=== PATIENT | male | born 1940 | race Caucasian/White ===

== ENCOUNTER 2018-07-24 22:11 | Observation (INO) | payer MEDICARE, OTHER ==
--- NOTE | 2018-07-24 22:25 | Emergency Department Record ---
History of Present Illness - General Chief complaint: Vomiting Stated complaint: FEVER,VOMITING HIGH BP Time Seen by Provider: 07/24/18 22:13 Source: Patient, Family Mode of Arrival: Ambulatory Limitations: No limitations - History of Present Illness Initial comments: 78 yo male presents with concerns about dehydration. He has not felt well for a week. The symptoms started with nausea, vomiting, and diarrhea the first day. The diarrhea and vomiting have subsided. His appetite has remained decreased. He has not seen blood in the stool or vomit. He does not have a PCP and denies any prescriptions. He was told he had HTN in the past but he does not take medicine. He has been taking his blood pressure at home and it has been elevated. He has had some mild epigastric pain since he first vomited a week ago. He has had some palpitations throughout the week that he attributes to dehydration. He feels somewhat dizzy with the palpitation. 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 MD complaint: Abdominal pain, Diarrhea, Nausea, Vomiting -: Week(s) Description of Vomiting: Watery Description of Diarrhea: Water Location: Diffuse Severity: Mild Consistency: Intermittent Improves with: None Worsens with: Eating Context: Other Associated Symptoms: Other - Related Data Home Medications Medication Instructions Recorded Confirmed Last Taken No Home Med [NO HOME MEDS] 07/24/18 07/24/18 Unknown Allergies Allergy/AdvReac Type Severity Reaction Status Date / Time No Known Drug Allergies Allergy Verified 07/24/18 22:21 Review of Systems Constitutional: Reports: Malaise, Weakness. Denies: Chills, Fever Eyes: Denies: Eye discharge, Eye pain, Photophobia, Vision change ENT: Denies: Congestion, Throat pain Respiratory: Denies: Cough, Dyspnea, Hemoptysis Cardiovascular: Reports: Palpitations. Denies: Chest pain, Syncope Endocrine: Reports: Fatigue. Denies: Heat or cold intolerance, Polydipsia, Polyuria Gastrointestinal: Reports: Abdominal pain, Diarrhea, Nausea, Vomiting. Denies: Constipation, Hematemesis, Melena Genitourinary: Denies: Dysuria, Frequency, Hematuria Musculoskeletal: Denies: Arthralgia, Back pain, Myalgia Skin: Denies: Bruising, Change in color, Rash Neurological: Denies: Headache Psychiatric: Denies: Anxiety Hematological/Lymphatic: Denies: Blood Clots, Easy bleeding, Easy bruising Physical Exam - General General Appearance: Alert, Oriented x3, Cooperative, No acute distress Limitations: No limitations - Head Head exam: Atraumatic, Normal inspection - Eye Eye exam: Normal appearance, PERRL. negative: Conjunctival injection, Scleral icterus - ENT ENT exam: Normal exam, Mucous membranes dry Ear exam: Normal external inspection Nasal Exam: Normal inspection Mouth exam: Normal external inspection Teeth exam: Normal inspection Throat exam: Normal inspection - Neck Neck exam: Normal inspection. negative: Tenderness - Respiratory Respiratory exam: Normal lung sounds bilaterally. negative: Accessory muscle use, Decreased breath sounds, Prolonged expiratory, Respiratory distress, Rhonchi, Stridor, Wheezes - Cardiovascular Cardiovascular Exam: Normal heart sounds, Irregular rhythm. negative: Regular rate, Normal rhythm, Diastolic murmur, Systolic murmur, Tachycardia Peripheral Pulses: 2+: Radial (R), Radial (L) - GI/Abdominal GI/Abdominal exam: Soft, Normal bowel sounds, Tenderness (mild epigastric but soft). negative: Distended, Guarding - Rectal Rectal exam: Deferred - exam: Deferred - Extremities Extremities exam: Normal inspection - Back Back exam: Denies: CVA tenderness (R), CVA tenderness (L) - Neurological Neurological exam: Alert, Oriented X3 - Psychiatric Psychiatric exam: Normal affect, Normal mood. negative: Agitated, Anxious - Skin Skin exam: Dry, Intact, Normal color, Warm Course - Reevaluation(s) Reevaluation #1: The monitor demonstrated an irregularly irregular rhythm EKG ordered 07/24/18 22:31 EKG #1: 22:33 Rate: 114 Rhythm: ectopic atrial vs atrial fibrillation, irregular with multiple PVC and supraventricular Fowler: left Intervals: Qtc 478 ST segments: no acute change Prior: 07/24/18 22:40 07/24/18 22:54 No acute changes on the CBC The CMP was reviewed. Na is 125 K is 3.5 Mg is 1.7 Cl is 90 HCO3 is 21 AG 14 07/24/18 23:07 The Troponin is normal The TSH is normal 07/24/18 23:12 The patient still is in atrial fibrillation I recommend heparin and cardizem. The patient was informed [facility] does not have cardiology or testing available on the weekend. This was explained to the patient. He prefers [facility] for transfer at this time. 07/24/18 23:16 [facility] does not have telemetry beds so the patient would be boarded in the ED. The patient was informed and requests [facility] was contacted for possible transfer 07/24/18 23:19 07/24/18 23:31 CXR report reviewed. L basilar consolidation suspicious for pneumonia. The patient has not had any symptoms consistent with pneumonia. NO cough or fever. 07/24/18 23:[address] Olson of internal medicine at [facility]. After extensive discussion of the case he refuses to accept the transfer to [facility]. I discussed the case with Pasha Patel of cardiology. He stated the patient will not get testing such as ECHO until Friday due to severe backlog of cases. Although he accepts the case he states there would not be any advantage to bringing the patient to [facility]. This was explained to the patient. At this time he requests to stay at [facility]. He does not consent to consider [facility] for transfer. The patient is stable. He will be admitted tonight to [facility] for monitoring, rate control. 07/25/18 00:05 07/25/18 00:18 EKG #2: 00:07 Rate: 122 Rhythm: atrial, irregular Fowler: left Intervals: Qtc 478 ST segments: no acute changes Prior: #1 07/25/18 00:21 07/25/18 01:33 The UA with possible findings of UTI. 07/25/18 01:[address] scan was reviewed of the abdomen. Suspect lingular pneumonia otherwise negative. 07/25/18 01:59 The patient now has a fever of 102. The initial temp was 98. Medical Decision Making - Lab Data Result diagrams: 07/24/18 22:28 07/25/18 05:45 Disposition Disposition: Admit Clinical Impression: Vomiting and diarrhea, Hyponatremia, Hypertension, Atrial dysrhythmia, Pneumonia, Urinary tract infection Disposition: Acute Care Hospital Transfer Decision to Admit: Admit from ER Decision to Admit Date: 07/25/18 Decision to Admit Time: 00:10 Condition: (2) Stable Time of Disposition: 23:20 Quality - Quality Measures Quality Measures: N/A - Blood Pressure Screening Does Patient Have Any of the Following: No Blood Pressure Classification: Hypertensive Reading Systolic Measurement: 186 Diastolic Measurement: 107 Screening for High Blood Pressure: < Pre-Hypertensive BP, F/U Documented > [ [id number]] Pre-Hypertensive Follow-up Interventions: Referral to alternative/primary care provider.
[2018-07-24 22:33] LABS: HEMATOCRIT 44.9 % (42.0-52.0); HEMOGLOBIN 15.2 gm/dl (14.0-18.0); MEAN CORPUSCULAR HEMOGLOBIN 27.4 pg (27-33); MEAN CORPUSCULAR HGB CONC 33.9 g/dl (32-36); PLATELET COUNT 229 K/uL (130-400); RED BLOOD COUNT 5.54 M/uL (4.40-5.70); RED CELL DISTRIBUTION WIDTH 13.8 % (11.5-14.5); WHITE BLOOD COUNT W/O DIFF 11.1 K/uL (4.2-12.2)
[2018-07-24] MEDS ORDERED: 0.9 % SODIUM CHLORIDE 1,000 ML BAG IV ONE (22:42)
[2018-07-24 22:46] LABS: BLOOD UREA NITROGEN 10 mg/dL (8-23); CREATININE 0.6 mg/dL (0.7-1.2); EST GLOMERULAR FILTRATION RATE > 60 mL/min
[2018-07-24 22:47] LABS: TOTAL PROTEIN 6.8 g/dL (6.6-8.7)
[2018-07-24 22:49] LABS: GLUCOSE,RANDOM 116 mg/dL (74-109)
[2018-07-24 22:52] LABS: ALB/GLOB RATIO 1.1 (1.1-1.8); ALBUMIN 3.6 g/dL (4.0-5.0); ALKALINE PHOSPHATASE 74 U/L (40-129); ALT/SGPT 17 U/L (<41); AST/SGOT 23 U/L (10.0-50.0)
[2018-07-24 23:03] LABS: THYROID STIMULATING HORMONE 1.53 uIU/mL (0.270-4.20)
[2018-07-24] MEDS ORDERED: HEPARIN SODIUM 1000 UNIT/1 ML 10ML VIAL IVP ONE (23:11)
[2018-07-24] MEDS ORDERED: SOD CHLOR 0.9% WITH KCL 40MEQ 40 MEQ/1,000 ML IV.SOLN IV ONE (23:13)
[2018-07-24] MEDS ORDERED: HEPARIN SODIUM/D5W 25,000 UNITS/500 ML BAG IV SCH (23:15)
[2018-07-24] MEDS ORDERED: CEFTRIAXONE 1GM/50ML BAG 1 GM/50 ML BAG IVPB ONE (23:31)
[2018-07-24] MEDS: DILTIAZEM HCL 125 MG in 0.9 % SODIUM CHLORIDE 100ML 100 ML IV SCH (23:37)
[2018-07-24 23:49] LABS: URINE APPEARANCE CLEAR; URINE BILIRUBIN NEGATIVE (NEGATIVE); URINE BLOOD TRACE-I (NEGATIVE); URINE COLOR YELLOW; URINE GLUCOSE (UA) NEGATIVE (NEGATIVE); URINE KETONE 40 mg/dL (NEGATIVE); URINE LEUKOCYTE ESTERASE TRACE (NEGATIVE); URINE NITRITE NEGATIVE (NEGATIVE); URINE PROTEIN TRACE (NEGATIVE); URINE UROBILINOGEN 0.2 E.U./dL (0.20 - 1.00)
[2018-07-25 00:01] LABS: URINE BACTERIA FEW; URINE EPITHELIAL CELLS 0 - 2 (FEW); URINE RBC 0 - 2 (NONE SEEN)
[2018-07-25] MEDS ORDERED: HYDRALAZINE 20MG/ML VIAL IV STA ×2 (00:51→01:43)
[2018-07-25] MEDS ORDERED: HYDRALAZINE 20MG/ML VIAL IV PRN (01:34)
[2018-07-25] MEDS ORDERED: ACETAMINOPHEN 500 MG TABLET PO ONE (01:58)
[2018-07-25] MEDS ORDERED: CEFTRIAXONE 1GM/50ML BAG 1 GM/50 ML BAG IVPB SCH (02:14)
[2018-07-25] MEDS ORDERED: ACETAMINOPHEN 500 MG TABLET PO PRN (02:14)
[2018-07-25] MEDS: POTASSIUM CHL 20MEQ IN 1L NS 20 MEQ/1,000 ML BAG IV SCH ×4 (03:22→20:00)
[2018-07-25] MEDS ORDERED: IBUPROFEN 600 MG TABLET PO ONE (05:44)
[2018-07-25 06:14] LABS: BLOOD UREA NITROGEN 8 mg/dL (8-23); CREATININE 0.6 mg/dL (0.7-1.2); EST GLOMERULAR FILTRATION RATE > 60 mL/min; GLUCOSE,RANDOM 120 mg/dL (74-109)
[2018-07-25] MEDS ORDERED: HEPARIN SODIUM 1000 UNIT/1 ML 10ML VIAL IVP ONE (06:15)
[2018-07-25] MEDS ORDERED: AZITHROMYCIN 500 MG TABLET PO ONE (11:00)
[2018-07-25] MEDS: CEFTRIAXONE 1GM/50ML BAG 1 GM/50 ML BAG IVPB SCH ×2 (11:44→23:50)
[2018-07-25] MEDS: DILTIAZEM HCL 125 MG in 0.9 % SODIUM CHLORIDE 100ML 100 ML IV SCH (12:18)
[2018-07-25 12:40] LABS: INFLUENZA A NEGATIVE (NEGATIVE); INFLUENZA B NEGATIVE (NEGATIVE)
[2018-07-25] MEDS: APIXABAN 5MG TABLET PO SCH ×2 (12:45→23:50)
[2018-07-25] MEDS: METOPROLOL SUCC 50 MG TABLET PO SCH (12:45)
[2018-07-25] MEDS: IBUPROFEN 600 MG TABLET PO PRN (18:24)
[2018-07-26 06:33] LABS: BLOOD UREA NITROGEN 9 mg/dL (8-23); CREATININE 0.5 mg/dL (0.7-1.2); EST GLOMERULAR FILTRATION RATE > 60 mL/min; GLUCOSE,RANDOM 124 mg/dL (74-109)
[2018-07-26] MEDS: METOPROLOL SUCC 50 MG TABLET PO SCH (09:50)
[2018-07-26] MEDS: APIXABAN 5MG TABLET PO SCH (09:50)
[2018-07-26] MEDS ORDERED: AZITHROMYCIN 500 MG TABLET PO SCH (10:00)
[2018-07-26] MEDS ORDERED: METOPROLOL SUCC 50 MG TABLET PO ONE (11:44)
[2018-07-26] MEDS: IBUPROFEN 600 MG TABLET PO PRN (12:30)
[2018-07-26] MEDS: CEFTRIAXONE 1GM/50ML BAG 1 GM/50 ML BAG IVPB SCH (12:32)
--- NOTE | 2018-07-26 13:00 | Discharge Note ---
VTE H&P Assessment - Risk for VTE Risk for VTE: Yes Risk Level: Moderate Risk Assessment Date: 07/25/18 Risk Assessment Time: 11:00 (PATAIENT ON ELIQUIS) VTE Orders Placed or Will Be Placed: Yes Discharge Medications - Discharge Medications Prescriptions: Apixaban [Eliquis] 5 mg PO BID #60 tablet Azithromycin [Zithromax] 500 mg PO DAILY #7 tab Cefdinir [Omnicef] 300 mg PO BID #14 cap Metoprolol Succinate [Toprol Xl] 100 mg PO DAILY #30 tab.er.24h Home Medications: Ambulatory Orders Acetaminophen [Tylenol 500Mg Tab] 1,000 mg PO Q6H PRN tablet 07/26/18 [Last Taken Unknown] Apixaban [Eliquis] 5 mg PO BID #60 tablet 07/26/18 [Last Taken Unknown] Azithromycin [Zithromax] 500 mg PO DAILY #7 tab 07/26/18 [Last Taken Unknown] Cefdinir [Omnicef] 300 mg PO BID #14 cap 07/26/18 [Last Taken Unknown] Metoprolol Succinate [Toprol Xl] 100 mg PO DAILY #30 tab.er.24h 07/26/18 [Last Taken Unknown] Discharge Note - Date Date of Discharge Note: 07/26/18 Disposition: Home, Self-Care Condition: (2) Stable Additional Instructions: follow up with Dr. Gilliland on July 9 10 am use tylenol two pills every 6 hours PRN temp No motrin use because on eliquis Forms: Patient Portal Access Activity at Discharge: Increase Activity as Tolerated Diet at Discharge: Regular Diet
--- NOTE | 2018-07-27 08:11 | RADIOLOGY REPORT ---
EXAM: PORTABLE CHEST HISTORY: CHEST PALPITATIONS, NAUSEA, VOMITING AND DIARRHEA. TECHNIQUE: A single frontal view of the chest was obtained. Comparison: None. FINDINGS: The cardiac silhouette is within normal size limits. The thoracic aorta is calcified and mildly tortuous. Patchy consolidation in the left lung base. No significant pleural fluid collection. No visible pneumothorax. IMPRESSION: LEFT LUNG BASE CONSOLIDATION SUSPICIOUS FOR PNEUMONIA. JOB NUMBER: [id number] MTDD
--- NOTE | 2018-07-27 08:19 | CT SCAN REPORT ---
EXAM: CT SCAN OF THE ABDOMEN AND PELVIS WITH CONTRAST HISTORY: EPIGASTRIC PAIN WITH NAUSEA AND VOMITING. DIARRHEA. HEART PALPITATIONS AND ELEVATED BLOOD PRESSURE. TECHNIQUE: CT scan of the abdomen and pelvis was obtained following the administration of contrast. FINDINGS: There is focal infiltrate and consolidation within the lingula. There is a nodular component. This likely represents acute pneumonia. Follow- up is recommended to assure clearing. Minor areas of atelectasis or scarring are present at the remaining lung bases. A few scattered calcified granulomas are present within the liver and spleen. The liver and spleen are otherwise normal. The gallbladder, biliary tree, pancreas, and adrenal glands are normal. The kidneys and ureters are normal in appearance. Atherosclerotic calcifications are present within the aorta with no aneurysm or dissection. There is no retroperitoneal lymphadenopathy. There are scattered diverticula within the sigmoid colon with no evidence for acute diverticulitis. The large and small bowel loops are otherwise normal. There are tiny bilateral fat containing inguinal hernias. Degenerative changes are present within the lumbar spine IMPRESSION: 1. FOCAL INFILTRATE/CONSOLIDATION WITHIN THE LINGULA SUGGESTING DEVELOPING PNEUMONIA. FOLLOW-UP IS RECOMMENDED TO CONFIRM CLEARING. 2. NO ACUTE INTRAABDOMINAL PATHOLOGY. 3. SIGMOID DIVERTICULOSIS WITH NO EVIDENCE FOR ACUTE DIVERTICULITIS. 4. TINY FAT CONTAINING INGUINAL HERNIAS BILATERALLY. JOB NUMBER: [id number] [facility]
--- NOTE | 2018-07-27 09:50 | History and Physical Report ---
DATE: 07/25/2018 CHIEF COMPLAINT: Weakness, vomiting, diarrhea, cough for 3-7 days, mostly in the last 3 days. HISTORY OF PRESENT ILLNESS: This 78-year-old male presented to the emergency department and was very weak. He has had nausea, vomiting, and diarrhea. The first day this happened was about 7 days ago. He states that the diarrhea and vomiting have subsided. His appetite has remained decreased. He has not seen blood in his stool or vomit. He does not have a PCP. Denies any prescription. He was told in the past he has hypertension. The last doctor he saw was about 5 years ago in [place]. He had some mild epigastric pain. He had palpitations throughout the week. He felt dizzy and dry with palpitations. EKG in the emergency department revealed PACs and atrial fibrillation, rate of about 110-120. He admits to drinking 2 beers a day. He had a chest x-ray which showed left lower lobe infiltrate and a CT of the abdomen and pelvis which also demonstrates lingular infiltrate in the lungs. No acute abdominal findings. The patient admitted to smoking 1 pack a day for 10 years from about 13 to 23, and he occasionally smokes marijuana now. PAST MEDICAL HISTORY: Hypertension but he is noncompliant, has not seen a doctor for 5 years, is not on any medication. PAST SURGICAL HISTORY: Appendectomy and colonoscopy about 5 years ago which was negative. MEDICATIONS: No home medications. ALLERGIES: No known drug allergies. FAMILY/PSYCHOSOCIAL HISTORY: Documented in the chart. Smoked for 10 years, 1 pack a day, quit at 23 years of age, smoked from [age]. Two beers a day is what he drinks. Occasional use of marijuana. REVIEW OF SYSTEMS: HEENT: He states he has a slight cough. No sore throat or congestion. Cardiovascular: No chest pain. He does have palpitations and he is not short of breath. Respiratory He has slight cough. Ten years of smoking from 13 years old until 23 years old. Gastrointestinal: He had some nausea, vomiting, diarrhea about 6 or 7 days ago but now that seems to be resolving but he has not had a bowel movement for the last 2 or 3 days. Genitourinary: No dysuria, hematuria, frequency, or burning on urination. His urine in the ER showed white cells of 7-10. Musculoskeletal: He is moving all 4 extremities without difficulty. Neurological: No CVA, paralysis, or paresthesias. Endocrine: No diabetes or thyroid disease. Integument: No rash, ulcers, change in moles, or yellow skin. PHYSICAL EXAMINATION: VITALS: Height 5 feet 10 inches, weight 288 pounds standing on a scale. Temperature in the emergency department is 102.6, pulse 132, blood pressure 176/103, respiratory rate 20, pulse ox 95% on room air. HEENT: Pupils are equal, round, and reactive to light and accommodation. Extraocular muscles are intact. Throat is clear. Nose is clear. Tympanic membranes are moreno. NECK: Supple. No jugular venous distention. No hepatojugular reflux. No carotid bruits. Thyroid is smooth. CARDIOVASCULAR: Irregular rate slightly but mostly regular. Repeat EKG at this time. RESPIRATORY: There is some coarseness in the left lower lobe but otherwise clear to auscultation. ABDOMEN: Soft, nontender. No hepatosplenomegaly, no masses, no tenderness. Bowel sounds are active. No bruits. EXTREMITIES: No pitting edema. No cyanosis, no clubbing. Full range of motion. Peripheral pulses are good. BREASTS: Normal male breasts. RECTAL: Exam deferred. GENITALIA: Deferred. NEUROLOGIC: Cranial nerves II-XII intact. No gross defects. Sensation normal, strength normal. Deep tendon reflexes equal bilaterally with Babinski negative. MENTAL STATUS: Alert and oriented x3. IMPRESSION: 1. Left lower lobe pneumonia. 2. Urinary tract infection. 3. Hyponatremia with a sodium of 126, coming up slightly from the ER of 125. 4. Hypertension by history and numbers at this time. PLAN: IV Rocephin 1 g q.12 h., azithromycin 500 mg daily. We will replace potassium and sodium in the IV. He is on a Cardizem drip and a heparin drip at this time. We will switch him over to Eliquis 5 mg twice a day for the AFib risk. We are going to stop the Cardizem and start Toprol-XL. MTDD
[2018-07-27] MEDS ORDERED: METOPROLOL SUCC 50 MG TABLET PO SCH (10:00)
--- NOTE | 2018-07-27 10:20 | Discharge Summary ---
DATE OF DISCHARGE: 07/26/2018 at 1:34 p.m. DISCHARGE DIAGNOSES: 1. Left lower lobe pneumonia. 2. Urinary tract infection. 3. Hyponatremia. 4. Atrial fibrillation, paroxysmal. 5. Hypertension. ATTENDING PHYSICIAN: Valdo Gilliland DO REASON FOR HOSPITALIZATION: This 78-year-old man presented to the emergency department, evaluated by Dr. Marshall. He had 7 days of feeling bad, vomiting and diarrhea, mostly on the first day of the 7 days. He also had a cough. He only smoked 1 pack a day for 10 years from the age of 13 to 23. His chest x-ray single view showed a left lung patchy infiltrate, left lower lung. CT of the abdomen and pelvis shows a lingular infiltrate in the left lower lung with tiny fat inguinal hernias. The abdominal and pelvic CT scan was otherwise unremarkable. Initially EKG had atrial fibrillation but he was started on a Cardizem drip and converted to normal sinus rhythm with some PACs. This is his first episode that he knows of of atrial fibrillation. He is an occasional marijuana user, and his urine showed WBCs 6-10. THERAPY PROVIDED: The patient was started on heparin IV, Cardizem IV, and antibiotics of Rocephin and azithromycin. He was switched over to Eliquis 5 mg b.i.d. The heparin was stopped. He converted to normal sinus rhythm. The Cardizem stopped and started him on Toprol-XL 50 mg a day, moved it up to 100 mg on the day of discharge because his blood pressure was still high. His pulse rate was running about 90. Continuing his antibiotics with azithromycin 500 mg a day for 7 days, cefdinir 300 mg b.i.d. for 10 days, advised him to eat more salt because he is low salt and we changed his diet to regular diet. We will recheck his blood on 07/29/2018, as an outpatient; basic metabolic profile. HOSPITAL COURSE: The patient is improved. He is having some loose stools on the day of discharge. He has had low-grade fevers on and off throughout this hospitalization. The last one was 100.4 orally. CONDITION ON DISCHARGE: Much improved. DISCHARGE INSTRUCTIONS: Follow up with Dr. Gilliland on 07/30/2018 at 10 a.m. on . Obtain an outpatient lab, basic metabolic profile, on 07/29/2018. DISCHARGE MEDICATION: 1. Tylenol 1000 mg q.6 h. p.r.n. 2. Advised him not to use nonsteroidal anti-inflammatories because he is on Eliquis 5 mg b.i.d. 3. Azithromycin 500 mg daily for 7 days. 4. Toprol-XL 100 mg daily, 30 pills dispensed. The patient will need an echocardiogram as an outpatient and further evaluation for his atrial fibrillation. That was his first time lasting for about 2 or 3 hours. IZABELLA
== END 2018-07-26 15:25 | disposition home or self-care (01) ==
LOC: ER 22:11 → INTOOBSV 07-25 00:42 → MEDSURG 07-25 00:42
PROVIDERS: ADMIT Internal Medicine; ATTEND Emergency Medicine
DX: R50.9 Fever, unspecified (principal); R11.2 Nausea with vomiting, unspecified; E86.0 Dehydration; R19.7 Diarrhea, unspecified; I48.91 Unspecified atrial fibrillation; I49.8 Other specified cardiac arrhythmias; E87.1 Hypo-osmolality and hyponatremia; I10 Essential (primary) hypertension; J18.9 Pneumonia, unspecified organism; N39.0 Urinary tract infection, site not specified
CPT/HCPCS: 71045; 74177; 80048; 80053; 81001; 83735; 84443; 84484; 85027; 85610; 85730; 87040; 87400; 93005; 93010; 96365; 96366; 99217; 99220; 99223; 99239; 99285; J0696; J7030

== ENCOUNTER 2018-11-05 08:19 | Day surgery (SDC) | payer MEDICARE, OTHER ==
[2018-11-05] MEDS ORDERED: LIDOCAINE 2% MDV (20MG/ML) 20ML VIAL IV ONE (08:20)
[2018-11-05] MEDS ORDERED: PROPOFOL 10 MG/ML VIAL IV ONE (08:20)
--- NOTE | 2018-11-06 09:50 | Operative Note ---
OPERATION: 1. COLONOSCOPY. 2. ESOPHAGOGASTRODUODENOSCOPY. PREOPERATIVE DIAGNOSIS: GI bleed and anemia. POSTOPERATIVE DIAGNOSES: 1. External hemorrhoid. 2. Cecal avm. 3. Moderate to severe sigmoid diverticulosis. 4. Antral gastritis. 5. Bulbar duodenitis. PROCEDURE: After informed consent was obtained from the patient including discussion that should I not be able to discover any obvious explanation for his anemia and bleeding on his colonoscopy, that an upper endoscopy would be offered. After discussing pros and cons, he was initially under the impression that he would not be sedated for the upper endoscopy, so originally did not want to undergo an upper evaluation. After understanding that he would be asleep, he consented and understood the rationale and was in agreement and quite pleased with the idea he would be sedated for the upper endoscopy. He was sedated and monitored by the department of anesthesia. Digital rectal exam revealed what appeared to be a thrombosed external hemorrhoid. No other palpable abnormality was noted. A well-lubricated [id number] colonoscope was inserted into the rectum and advanced to the cecum. Preparation quality was good to excellent. The cecum and cecal bulb were examined and demonstrated a non- bleeding, moderate-size avm. Given his recent use of Eliquis and without any more significant findings, I do not feel that intervention would be appropriate at this time. The remainder of the cecum, ascending colon, transverse colon, and descending colon were unremarkable. The sigmoid colon demonstrated moderate to severe diverticular changes. No fresh blood or old blood, polyps, or mass lesions were seen. The rectum was unremarkable in forward and J-turn views. The endoscope was straightened, the rectal ampulla deflated, and the endoscope was removed. A bite block was placed. A well-lubricated [id number] gastroscope was placed in the posterior oropharynx under direct visualization and passed to the proximal, mid, and distal esophagus. The GE junction was examined and appeared unremarkable. The gastric body and antrum were unrevealing other than antral gastritis. No ulcers or erosions were noted. The duodenal bulb demonstrated [id number] bulbar duodenitis. The duodenal sweep was unremarkable. No fresh or old blood or AVMs or mass lesions were seen. J-turn views of the proximal stomach were unremarkable. The antrum and duodenum were again inspected. No new findings noted. The endoscope was removed from the patient with no new findings noted. RECOMMENDATIONS: At this point, unclear how this occurred. Given his prior use of aspirin, perhaps this was aspirin-induced. In addition, there may be an undiscovered small bowel issue such as multiple small bowel AVMs or perhaps other abnormalities of the small bowel. As a result, a capsule endoscopy will be scheduled. As always, thank you for allowing me to participate in the healthcare of your patients. IZABELLA
== END 2018-11-05 10:24 | disposition home or self-care (01) ==
LOC: HOP 08:19
PROVIDERS: ATTEND Internal Medicine Gastroenterology
DX: K92.2 Gastrointestinal hemorrhage, unspecified (principal); D64.9 Anemia, unspecified; Q27.33 Arteriovenous malformation of digestive system vessel; K57.30 Diverticulosis of large intestine without perforation or abscess without bleeding; K29.60 Other gastritis without bleeding; K29.80 Duodenitis without bleeding; I10 Essential (primary) hypertension; I74.9 Embolism and thrombosis of unspecified artery